=== PATIENT | male | born 1945 | race Caucasian/White ===

== ENCOUNTER 2019-12-16 22:59 | Emergency (ER) | payer MEDICARE, BC ==
[2019-12-16] MEDS ORDERED: Bacitracin Oint 1 GM U/D Packet TOP ONE (23:04)
[2019-12-16] MEDS ORDERED: Diphtheria,Pertussis(Acell),Tetanus Vaccine 0.5 ML SDV IM ONE (23:23)
--- NOTE | 2019-12-16 23:30 | EDM.PDOC ---
ED HPI GENERAL MEDICAL PROBLEM - General Chief Complaint: Laceration Stated Complaint: FISH HOOK L THUMB Time Seen by Provider: 12/16/19 23:10 Source of Information: Reports: Patient History Limitations: Reports: No Limitations - History of Present Illness INITIAL COMMENTS - FREE TEXT/NARRATIVE: 73-year-old male with a fishhook embedded into his left thumb. Is been present for about an hour and a half, they tried to remove it but could not. Onset: Sudden Duration: Hour(s): (Less than 2 hours ago) Location: Reports: Upper Extremity, Left Associated Symptoms: Reports: No Other Symptoms Left Finger-Thumb Pain Score (Numeric/FACES): 0 - Related Data Allergies Allergy/AdvReac Type Severity Reaction Status Date / Time No Known Allergies Allergy Verified 12/16/19 23:16 Home Meds: Home Meds Benazepril HCl 5 mg PO DAILY 12/16/19 [History] amLODIPine Besylate [Amlodipine Besylate] 10 mg PO DAILY 12/16/19 [History] Past Medical History Cardiovascular History: Reports: Hypertension Respiratory History: Reports: COPD Musculoskeletal History: Reports: Fracture Oncologic (Cancer) History: Reports: Bladder Social & Family History - Tobacco Use Smoking Status *Q: Never Smoker - Caffeine Use Caffeine Use: Reports: None - Recreational Drug Use Recreational Drug Use: No ED ROS GENERAL - Review of Systems Review Of Systems: See Below Constitutional: Denies: Fever, Chills Respiratory: Denies: Shortness of Breath GI/Abdominal: Denies: Nausea, Vomiting Neurological: Denies: Paresthesia ED EXAM, SKIN/RASH Exam: See Below Exam Limited By: No Limitations General Appearance: Alert, No Apparent Distress Respiratory/Chest: No Respiratory Distress Extremities: Other (Exam is otherwise limited to the left hand. Patient has 1 josefina of a treble hook embedded into the thumb just lateral to the thumbnail.) Course - Vital Signs Last Recorded V/S: Last Vital Signs Temp 97.8 F 12/16/19 23:14 Pulse 74 12/16/19 23:14 Resp 18 12/16/19 23:14 BP 188/78 H 12/16/19 23:14 Pulse Ox 91 L 12/16/19 23:14 - Orders/Labs/Meds Orders: Active Orders 24 hr Category Date Time Status Vaccines to be Administered [RC] PER UNIT ROUTINE Care 12/16/19 23:23 Active Meds: Medications Discontinued Medications Generic Name Dose Route Start Last Admin Trade Name Jake PRN Reason Stop Dose Admin Bacitracin 1 dose 12/16/19 23:04 12/16/19 23:20 Bacitracin Oint 1 Gm TOP 12/16/19 23:05 1 dose ONETIME ONE Administration Diphtheria/Tetanus/Acell Pertussis 0.5 ml 12/16/19 23:23 12/16/19 23:26 Adacel IM 12/16/19 23:24 0.5 ml .ONCE ONE Administration Lidocaine HCl 5 ml 12/16/19 23:04 12/16/19 23:20 Xylocaine-Mpf 1% INJECT 12/16/19 23:05 5 ml ONETIME ONE Administration - Re-Assessments/Exams Free Text/Narrative Re-Assessment/Exam: 12/16/19 23:28 The area was sterilized with alcohol, infiltrated with a small amount of 1% lidocaine and the hook removed with a needle dang. It was again cleansed thoroughly with alcohol, a small amount of bacitracin was applied with a Band- Aid and the patient was given a Tdap booster. He will keep the wound covered and clean while healing. Departure - Departure Time of Disposition: 23:34 Disposition: Home, Self-Care 01 Clinical Impression: [place] injury to finger Qualifiers: Encounter type: initial encounter Laterality: left Qualified Code(s): S69.92XA - Unspecified injury of left wrist, hand and finger(s), initial encounter - Discharge Information Instructions: Puncture Wound, [id number] Referrals: PCP,None [Primary Care Provider] - Forms: ED Department Discharge Care Plan Goals: Keep puncture wound covered and clean while healing and return if concerns of infection or not healing satisfactorily. Otherwise increase activity as tolerated, keep fishing. Sepsis Event Note (ED) - Evaluation Sepsis Screening Result: No Definite Risk - Focused Exam Vital Signs: Vital Signs Temp Pulse Resp BP Pulse Ox 12/16/19 23:14 97.8 F 74 18 188/78 H 91 L - My Orders Last 24 Hours: My Active Orders 12/16/19 23:23 Vaccines to be Administered [RC] PER UNIT ROUTINE - Assessment/Plan Last 24 Hours: My Active Orders 12/16/19 23:23 Vaccines to be Administered [RC] PER UNIT ROUTINE
== END 2019-12-16 23:34 | disposition home or self-care (01) ==
LOC: JP.ED 22:59
DX: S60.352A Superficial foreign body of left thumb, initial encounter (principal); I10 Essential (primary) hypertension; J44.9 Chronic obstructive pulmonary disease, unspecified; Z79.899 Other long term (current) drug therapy; Z23 Encounter for immunization; W45.8XXA Other foreign body or object entering through skin, initial encounter
CPT/HCPCS: 90471; 90715; 99282; J2001